=== PATIENT | male | born 1960 | race Caucasian/White ===

== ENCOUNTER 2017-05-29 22:54 | Inpatient (IN) | payer OTHER ==
[2017-05-29] MEDS ORDERED: Metoprolol Tartrate 50 MG TAB ONE (23:21)
[2017-05-29] MEDS ORDERED: Metoprolol Tartrate 5 MG/5 ML VIAL ONE (23:21)
[2017-05-29] MEDS ORDERED: Azithromycin 250 MG TAB ONE (23:26)
[2017-05-30 00:08] LABS: CKMB 2.6 ng/mL (0-6.6); Troponin I 0.019 ng/mL (< 0.028)
[2017-05-30] MEDS ORDERED: Albuterol Sulfate 2.5 mg/3 ml Neb NEB PRN (01:07)
[2017-05-30] MEDS ORDERED: Ondansetron HCl/PF 4 MG/2 ML Vial IVP PRN (01:08)
[2017-05-30] MEDS ORDERED: Ondansetron ODT 4 MG TAB SL PRN (01:08)
[2017-05-30] MEDS ORDERED: Acetaminophen 325 MG TAB PO PRN (01:08)
[2017-05-30 01:25] VITALS: BMI 32.5
[2017-05-30] MEDS: Guaifenesin DM 100-10/5 ML UDCUP PO PRN (01:59)
[2017-05-30 02:37] LABS: Troponin I 0.021 ng/mL (< 0.028)
--- NOTE | 2017-05-30 03:35 | HP ---
CHIEF COMPLAINT: Coughing. HISTORY OF PRESENT ILLNESS: The patient is a 57-year-old male who presents with shortness of breath and coughing. Patient was seen in [place] and tested positive for flu. He was also short of breath and transferred here for further inpatient workup. His chest x-ray did show also a possible concurr ent right lower lobe pneumonia. The patient states that he has been having fevers as well as his cou ghing. He does have a history of COPD, however, is not oxygen dependent. He still smokes about a pa ck a day. PAST MEDICAL HISTORY: The patient is significant for COPD and hypertension as well as atrial fibrill ation. PAST SURGICAL HISTORY: The patient had prior trach placement. ALLERGIES: No known drug allergies. REVIEW OF SYSTEMS: Please see HPI. Rest of 14-point review of systems is negative. FAMILY HISTORY: Reviewed and noncontributory. LABORATORY AND X-RAY DATA: Troponin 0.019. Patient's white count was 5.1, H and H 15 and 42 with a platelet of 105. Sodium is 136, potassium 4.3, chloride 103, bicarbonate 22, BUN 70 with a creatinin e of 0.8. Chest x-ray shows a right lower lobe infiltrate. PHYSICAL EXAMINATION: VITAL SIGNS: Blood pressure 109/71, pulse 100, respirations 20, T-max 98.4. The patient satting 94% on 2 liters. GENERAL: Patient is awake, alert, and oriented x3, in no acute distress. HEENT: Pupils round, reactive to light and accommodation. Extraocular muscles intact. TMs are sravanthi r. No thyromegaly. NECK: No JVD or lymphadenopathy. HEART: Regular rate and rhythm. LUNGS: With decreased breath sounds throughout. ABDOMEN: Positive bowel sounds, soft, nontender, nondistended. EXTREMITIES: No clubbing, cyanosis or edema. NEUROLOGIC: Cranial nerves II through XII are grossly intact. Muscle strength equal throughout. PSYCHIATRIC: The patient is cooperative and appropriate. ASSESSMENT AND PLAN: 1. Influenza B infection. Continue with Tamiflu. 2. Probable concurrent bacterial pneumonia. Continue on Levaquin. 3. Atrial fibrillation. Continue Eliquis and digoxin and rate control. 4. Hypertension. Continue lisinopril, metoprolol. 5. Code status: The patient is FULL CODE.
[2017-05-30 06:12] LABS: Troponin I 0.013 ng/mL (< 0.028)
[2017-05-30] MEDS: Oseltamivir 75 MG CAP PO SCH ×2 (08:18→21:38)
[2017-05-30] MEDS: Lisinopril 5 MG TAB PO SCH (08:18)
[2017-05-30] MEDS: Metoprolol Tartrate 50 MG TAB PO SCH ×2 (08:18→21:38)
[2017-05-30] MEDS: Digoxin 0.125 MG TAB PO SCH (08:19)
[2017-05-30] MEDS: Apixaban 5 MG TAB PO SCH ×2 (08:19→21:37)
[2017-05-30] MEDS ORDERED: FLU VACC QS2017-18 36 mo. & older 0.5 ML SYRINGE IM ONE (09:00)
[2017-05-30] MEDS ORDERED: Ondansetron ODT 4 MG TAB PO PRN (09:16)
[2017-05-30] MEDS ORDERED: Zolpidem Tartrate 5 MG TAB PO PRN (09:16)
[2017-05-30] MEDS ORDERED: hydrALAZINE 20 MG/ML VIAL SLOW IVP PRN (09:16)
--- NOTE | 2017-05-30 09:20 | PDOC.PN ---
- Subjective Encounter Start Date: 05/30/17 Encounter Start Time: 09:19 Subjective: less sob, coughing - Objective Resuscitation Status: Resuscitation Status FULL:Full Resuscitation MAR Reviewed: Yes Vital Signs & Weight: Vital Signs (12 hours) Temp Pulse Resp BP BP Pulse Ox 05/30/17 08:19 98 05/30/17 08:18 98 130/90 05/30/17 08:00 96.7 F L 103 H 18 130/90 91 L 05/30/17 04:00 97.5 F L 94 19 108/58 L 94 L 05/30/17 00:50 97.5 F L 94 19 112/65 95 Weight Weight 240 lb 4.862 oz I&O: 05/29/17 05/30/17 05/31/17 06:59 06:59 06:59 Intake Total 400 Balance 400 Phys Exam - Physical Examination Constitutional: NAD Neck: no JVD distant BS with rhonchi Cardiovascular: RRR, no significant murmur Gastrointestinal: soft, positive bowel sounds Musculoskeletal: no edema Dx/Plan (1) COPD exacerbation Code(s): J44.1 - CHRONIC OBSTRUCTIVE PULMONARY DISEASE W (ACUTE) EXACERBATION Status: Acute (2) Atrial fibrillation with controlled ventricular rate Code(s): I48.91 - UNSPECIFIED ATRIAL FIBRILLATION Status: Chronic (3) Anticoagulant long-term use Code(s): Z79.01 - COGNOS LEAD (CURRENT) USE OF ANTICOAGULANTS Status: Chronic (4) HTN (hypertension) Code(s): I10 - ESSENTIAL (PRIMARY) HYPERTENSION Status: Chronic (5) Tobacco abuse Code(s): Z72.0 - TOBACCO USE Status: Chronic (6) PNA (pneumonia) Code(s): J18.9 - PNEUMONIA, UNSPECIFIED ORGANISM Status: Acute Qualifiers: Pneumonia type: due to unspecified organism Laterality: unspecified laterality Lung location: unspecified part of lung Qualified Code(s): J18.9 - Pneumonia, unspecified organism - Plan start douneb q 6h, cont antibx -: cont dig, eliquis, lisinopril, metoprolol * .
[2017-05-30] MEDS: Benzonatate 100 MG CAP PO PRN (21:43)
[2017-05-30 22:55] LABS: Hemoglobin 15.3 g/dL (14.0-18.0); Platelet Count 141 thou/uL (130-400)
[2017-05-30 23:14] LABS: Calc. Creatinine Clearance 148 mL/min (70-130); Estimated GFR-MDRD Greater than 90
[2017-05-31 05:21] LABS: #Lymphocytes 0.8 thou/uL (1.20-3.40); #Monocytes 0.5 thou/uL (0.11-0.59); #Neutrophils 5.8 thou/uL (1.40-6.50); %Basophils 0.1 % (0.0-1.0); %Eosinophils 0.3 % (0.0-10.0); %Lymphocytes 10.7 % (21.0-51.0); %Monocytes 6.6 % (0.0-10.0); %Neutrophils 82.4 % (42.0-75.0); Hemoglobin 14.7 g/dL (14.0-18.0); Mean Corpuscular HGB CONC 33.4 g/dL (32.0-36.0); Mean Corpuscular Hemoglobin 31.5 pg (27.0-31.0); Mean Corpuscular Volume 94.3 fl (80.0-94.0); Mean Platelet Volume 9.2 fL (7.4-10.4); Platelet Count 134 thou/uL (130-400); RBC Distribution Width 12.2 % (11.5-14.5); Red Blood Cell (RBC) Count 4.66 mill/uL (4.70-6.10)
[2017-05-31] MEDS ORDERED: Sodium Chloride 0.9% 10 ML ONE ×2 (05:38→20:38)
[2017-05-31 05:50] LABS: Anion Gap 10 mmol/L (10-20); BUN (Urea Nitrogen) 17 mg/dL (8.4-25.7); Calc. Creatinine Clearance 159 mL/min (70-130); Calcium 8.5 mg/dL (7.8-10.44); Carbon Dioxide 25 mmol/L (22-29); Chloride 104 mmol/L (98-107); Estimated GFR-MDRD Greater than 90; Glucose 128 mg/dL (70-105); Potassium 3.9 mmol/L (3.5-5.1); Sodium 135 mmol/L (136-145)
[2017-05-31] MEDS: Lisinopril 5 MG TAB PO SCH (09:04)
[2017-05-31] MEDS: Apixaban 5 MG TAB PO SCH ×2 (09:04→20:49)
[2017-05-31] MEDS: Digoxin 0.125 MG TAB PO SCH (09:05)
[2017-05-31] MEDS: Metoprolol Tartrate 50 MG TAB PO SCH ×2 (09:05→20:50)
[2017-05-31] MEDS: Oseltamivir 75 MG CAP PO SCH ×2 (09:05→20:49)
--- NOTE | 2017-05-31 09:58 | PDOC.PN ---
- Subjective Encounter Start Date: 05/31/17 Encounter Start Time: 09:56 Subjective: less sob, still coughing - Objective Resuscitation Status: Resuscitation Status FULL:Full Resuscitation MAR Reviewed: Yes Vital Signs & Weight: Vital Signs (12 hours) Temp Pulse Resp BP BP Pulse Ox 05/31/17 09:05 118 H 05/31/17 09:04 118 H 120/82 05/31/17 07:41 97.2 F L 118 H 19 92 L 05/31/17 07:39 97.2 F L 118 H 19 120/82 92 L 05/31/17 05:19 105 H 20 96 05/31/17 04:00 97.8 F 81 20 127/73 94 L 05/30/17 23:00 112 H 20 116/71 93 L Weight Weight 242 lb 3.2 oz I&O: 05/30/17 05/31/17 06/01/17 06:59 06:59 06:59 Intake Total 400 480 Balance 400 480 Result Diagrams: 05/31/17 04:29 05/31/17 04:29 Phys Exam - Physical Examination Neck: no JVD distant BS, no wheezes Cardiovascular: RRR, no significant murmur Gastrointestinal: soft, non-tender, positive bowel sounds Musculoskeletal: no edema Dx/Plan (1) COPD exacerbation Code(s): J44.1 - CHRONIC OBSTRUCTIVE PULMONARY DISEASE W (ACUTE) EXACERBATION Status: Acute (2) Atrial fibrillation with controlled ventricular rate Code(s): I48.91 - UNSPECIFIED ATRIAL FIBRILLATION Status: Chronic (3) Anticoagulant long-term use Code(s): Z79.01 - DETENTION (CURRENT) USE OF ANTICOAGULANTS Status: Chronic (4) HTN (hypertension) Code(s): I10 - ESSENTIAL (PRIMARY) HYPERTENSION Status: Chronic (5) Tobacco abuse Code(s): Z72.0 - TOBACCO USE Status: Chronic (6) PNA (pneumonia) Code(s): J18.9 - PNEUMONIA, UNSPECIFIED ORGANISM Status: Acute Qualifiers: Pneumonia type: due to unspecified organism Laterality: unspecified laterality Lung location: unspecified part of lung Qualified Code(s): J18.9 - Pneumonia, unspecified organism - Plan cont antibx, nebs, tamiflu -: cont home meds * .
[2017-05-31] MEDS: Benzonatate 100 MG CAP PO PRN ×2 (12:28→20:49)
[2017-05-31] MEDS: Guaifenesin DM 100-10/5 ML UDCUP PO PRN (17:18)
[2017-05-31] MEDS: Acetaminophen 325 MG TAB PO PRN (19:09)
[2017-06-01] MEDS ORDERED: Sodium Chloride 0.9% 10 ML ONE ×2 (05:52→20:06)
[2017-06-01] MEDS: Guaifenesin DM 100-10/5 ML UDCUP PO PRN (05:58)
[2017-06-01] MEDS: Benzonatate 100 MG CAP PO PRN (05:59)
[2017-06-01] MEDS: Acetaminophen 325 MG TAB PO PRN (06:10)
[2017-06-01] MEDS: Digoxin 0.125 MG TAB PO SCH (09:11)
[2017-06-01] MEDS: Lisinopril 5 MG TAB PO SCH (09:11)
[2017-06-01] MEDS: Apixaban 5 MG TAB PO SCH ×2 (09:11→21:16)
[2017-06-01] MEDS: Oseltamivir 75 MG CAP PO SCH ×2 (09:12→21:17)
[2017-06-01] MEDS: Metoprolol Tartrate 50 MG TAB PO SCH ×2 (09:12→21:16)
--- NOTE | 2017-06-01 10:58 | PDOC.PN ---
- Subjective Encounter Start Date: 06/01/17 Encounter Start Time: 10:56 Subjective: cough, some sob - Objective Resuscitation Status: Resuscitation Status FULL:Full Resuscitation MAR Reviewed: Yes Vital Signs & Weight: Vital Signs (12 hours) Temp Pulse Resp BP BP Pulse Ox 06/01/17 09:11 104 H 106/60 06/01/17 08:00 96.9 F L 104 H 20 106/60 90 L 06/01/17 06:02 28 H 94 L 06/01/17 05:37 97.1 F L 113 H 28 H 111/69 94 L 05/31/17 23:57 96 24 H 92 L 05/31/17 23:56 98.2 F 96 24 H 105/75 94 L Weight Weight 241 lb 4.8 oz I&O: 05/31/17 06/01/17 06/02/17 06:59 06:59 06:59 Intake Total 480 1730 Balance 480 1730 Result Diagrams: 05/31/17 04:29 05/31/17 04:29 Phys Exam - Physical Examination Neck: no JVD Respiratory: clear to auscultation bilateral with decreased BS Cardiovascular: irregular Gastrointestinal: soft, positive bowel sounds Musculoskeletal: no edema Dx/Plan (1) COPD exacerbation Code(s): J44.1 - CHRONIC OBSTRUCTIVE PULMONARY DISEASE W (ACUTE) EXACERBATION Status: Acute (2) Atrial fibrillation with controlled ventricular rate Code(s): I48.91 - UNSPECIFIED ATRIAL FIBRILLATION Status: Chronic (3) Anticoagulant long-term use Code(s): Z79.01 - PRISON (CURRENT) USE OF ANTICOAGULANTS Status: Chronic (4) HTN (hypertension) Code(s): I10 - ESSENTIAL (PRIMARY) HYPERTENSION Status: Chronic (5) Tobacco abuse Code(s): Z72.0 - TOBACCO USE Status: Chronic (6) PNA (pneumonia) Code(s): J18.9 - PNEUMONIA, UNSPECIFIED ORGANISM Status: Acute Qualifiers: Pneumonia type: due to unspecified organism Laterality: unspecified laterality Lung location: unspecified part of lung Qualified Code(s): J18.9 - Pneumonia, unspecified organism - Plan cont to improve, will cont nebs, antibx, tamiflu, anticipate DC 1-2 days * .
[2017-06-01 22:41] LABS: Hemoglobin 15.1 g/dL (14.0-18.0); Platelet Count 128 thou/uL (130-400)
[2017-06-01 23:03] LABS: Calc. Creatinine Clearance 166 mL/min (70-130); Estimated GFR-MDRD Greater than 90
[2017-06-02] MEDS ORDERED: Sodium Chloride 0.9% 10 ML ONE (05:28)
[2017-06-02] MEDS: Digoxin 0.125 MG TAB PO SCH (09:08)
[2017-06-02] MEDS: Lisinopril 5 MG TAB PO SCH (09:08)
[2017-06-02] MEDS: Metoprolol Tartrate 50 MG TAB PO SCH (09:08)
[2017-06-02] MEDS: Oseltamivir 75 MG CAP PO SCH (09:08)
[2017-06-02 09:09] VITALS: BP 125/81
[2017-06-02] MEDS: Apixaban 5 MG TAB PO SCH (09:09)
--- NOTE | 2017-06-02 09:54 | DIS ---
DATE OF ADMISSION: 05/29/2017 DATE OF DISCHARGE: 06/02/2017 PRIMARY CARE PROVIDER: Dr. Clementine Lee. DISPOSITION: Discharged home. FINAL DIAGNOSES: Chronic obstructive pulmonary disease exacerbation, influenza A, atrial fibrillatio n controlled, essential hypertension, anticoagulation, hypertension, tobacco abuse. DISCHARGE MEDICATIONS: As home medicines. Digoxin 0.125 mg a day, Eliquis 5 mg twice a day, Klor-Co n 10 mEq b.i.d., metoprolol 50 mg b.i.d., lisinopril 5 mg a day plus DuoNeb 3 mL q.6 hours p.r.n., Om nicef 600 mg a day for 7 more days, Tessalon Perles 100 mg p.o. t.i.d. p.r.n. cough and Tamiflu 75 mg twice a day. ALLERGIES: No known allergies. PENDING AT THE TIME OF DISCHARGE: Nothing. CODE STATUS: FULL. HOSPITAL COURSE: The patient admitted to [facility] through the Emergency Department to the [facility] with shortness of breath, cough. His chest x-ray was read as possible pne umonia. There was some possible increase in right basilar markings per radiology when I reviewed the films and did not see any distinct pneumonia. His chest exam revealed only distant breath sounds wi th some scattered rhonchi, no focal findings. His white count was normal throughout his hospital sta y at 5.1 and 7.0, hemoglobin stable at 15 plus or minus. His liver function tests were mildly elevat ed at 109 and 127, otherwise comprehensive metabolic profile was normal. Digoxin level was 0.1. The patient was mildly hypoxemic, which is resolved during his hospital stay. Currently, his chest stil l has somewhat distant breath sounds, but clear. Heart has a regular rate and rhythm. Vital signs a re stable. CONSULTATIONS: None. PROCEDURES: None. DISCHARGE INSTRUCTIONS: He has been discharged with follow up by Dr. Lee in 7 days. Prescriptio ns have been written. I have also written a prescription for nebulizer for him to use as needed. In his follow up, he probably should have a repeat chest x-ray.
[2017-06-02 11:48] VITALS: TEMP 97
--- NOTE | 2017-06-04 17:05 | EKG ---
Test Reason : TACHYCARDIA Blood Pressure : / mmHG Vent. Rate : 130 BPM Atrial Rate : 159 BPM P-R Int : 000 ms QRS Dur : 092 ms QT Int : 284 ms P-R-T Axes : 000 111 -80 degrees QTc Int : 417 ms Atrial fibrillation with rapid ventricular response Low voltage QRS Left posterior fascicular block Nonspecific ST and T wave abnormality Abnormal ECG Confirmed by BASSEM MURGUIA D.O. ([id number]), senior technical editor MELINA MURPHY ([id number] on 06/04/2017 5:04:30 PM Referred By: Confirmed By:BASSEM MURGUIA D.O.
== END 2017-06-02 11:19 | disposition home or self-care (01) | DRG 190 ==
LOC: ERS 22:54 → 2NO 23:30
PROVIDERS: ADMIT Hospitalist; ATTEND Hospitalist
DX: J44.1 Chronic obstructive pulmonary disease with (acute) exacerbation (principal); J10.00 Influenza due to other identified influenza virus with unspecified type of pneumonia; J15.9 Unspecified bacterial pneumonia; I48.2 Chronic atrial fibrillation; J44.0 Chronic obstructive pulmonary disease with (acute) lower respiratory infection; F17.210 Nicotine dependence, cigarettes, uncomplicated; I10 Essential (primary) hypertension; Z79.01 Long term (current) use of anticoagulants
CPT/HCPCS: 36415; 80048; 82565; 84484; 85014; 85018; 85025; 85049; 93005; 94640; 94760; 96374; A4216; J1956; J7620

== ENCOUNTER 2018-06-29 07:55 | Outpatient (CLI) | payer OTHER ==
--- NOTE | 2018-06-29 09:29 | ULT ---
HEPATIC ULTRASOUND AND DOPPLER: TECHNIQUE: Garza-scale images of the liver obtained. Doppler studies of the hepatic vessels was performed with c olor Doppler and spectral analysis. FINDINGS: The liver shows mild increased echogenicity, suggesting fatty infiltration. No focal liver mass iden tified. The visualized hepatic vessels are interrogated with color Doppler and spectral analysis. A ll vessels show normal blood flow and direction, including hepatic arteries, hepatic veins, portable veins and splenic artery and vein. The gallbladder is limited in evaluation due to body habitus, and the gallbladder appears mildly cont racted. On the limited images of the gallbladder presented, there is no evidence of gallstones. The common duct is unable to be identified on this study. There is no evidence of biliary duct dilatati on. The pancreas is obscured and not evaluated. The right kidney is imaged. There is no evidence of hyd ronephrosis; however, there is evidence of a small calculus in the upper pole, right kidney, seen on one or two of the images. The spleen is unremarkable. IMPRESSION: 1. The liver shows mild increased echogenicity, suggesting fatty infiltration. 2. All hepatic vessels show normal blood flow direction. 3. The gallbladder is suboptimally evaluated; however, no definite gallstone identified. POS: [facility]
== END 2018-06-29 07:56 | disposition home or self-care (01) ==
LOC: BICULT 07:55
PROVIDERS: ATTEND Physician Assistant Medical
DX: B18.2 Chronic viral hepatitis C (principal); R93.2 Abnormal findings on diagnostic imaging of liver and biliary tract
CPT/HCPCS: 76705

== ENCOUNTER 2022-04-26 18:34 | Emergency (ER) | payer OTHER ==
[2022-04-26] MEDS ORDERED: Ipratropium/Albuterol 3 ML NEB ONE (19:09)
[2022-04-26 19:13] LABS: #Eosinphils 0.3 thou/uL (0.0-0.7); #Lymphocytes 1.6 thou/uL (1.20-3.40); #Monocytes 0.8 thou/uL (0.11-0.59); #Neutrophils 6.1 thou/uL (1.40-6.50); %Basophils 0.3 % (0.0-1.0); %Eosinophils 3.6 % (0.0-10.0); %Monocytes 8.6 % (0.0-10.0); %Neutrophils 69.4 % (42.0-75.0); Hemoglobin 14.9 g/dL (14.0-18.0); Mean Corpuscular HGB CONC 32.8 g/dL (32.0-36.0); Mean Corpuscular Hemoglobin 29.7 pg (27.0-31.0); Mean Corpuscular Volume 90.7 fl (78.0-98.0); Platelet Count 186 10x3/uL (130-400); RBC Distribution Width 13.7 % (11.5-14.5); Red Blood Cell (RBC) Count 5.01 mill/uL (4.70-6.10); White Blood Cell (WBC) Count 8.8 10x3/uL (4.8-10.8)
[2022-04-26 19:37] LABS: ALT (SGPT) 21 U/L (8-55); AST (SGOT) 17 U/L (5-34); Albumin 4.4 g/dL (3.4-4.8); Alkaline Phosphatase 72 U/L (40-110); Anion Gap 15 mmol/L (10-20); BUN (Urea Nitrogen) 13 mg/dL (8.4-25.7); Bilirubin, Total 0.8 mg/dL (0.2-1.2); Calc. Creatinine Clearance 0 mL/min (70-130); Calcium 9.4 mg/dL (7.8-10.44); Carbon Dioxide 26 mmol/L (23-31); Chloride 107 mmol/L (98-107); Estimated GFR 88; Glucose 127 mg/dL (80-115); Potassium 4.6 mmol/L (3.5-5.1); Protein, Total 7.4 g/dL (5.8-8.1); Sodium 143 mmol/L (136-145)
[2022-04-26] MEDS ORDERED: Dexamethasone 4 mg/ml Vial ONE (20:36)
[2022-04-26] MEDS ORDERED: Gabapentin 100 MG CAP PO SCH (20:45)
== END 2022-04-26 20:50 | disposition home or self-care (01) ==
LOC: ERS 18:34
DX: J44.1 Chronic obstructive pulmonary disease with (acute) exacerbation (principal); G62.9 Polyneuropathy, unspecified; I11.0 Hypertensive heart disease with heart failure; I50.9 Heart failure, unspecified; J44.9 Chronic obstructive pulmonary disease, unspecified; F17.210 Nicotine dependence, cigarettes, uncomplicated
CPT/HCPCS: 36415; 71045; 80053; 83880; 84484; 85025; 93005; 94640; 94760; J1100; J7620

== ENCOUNTER 2022-05-22 16:17 | Inpatient (IN) | payer OTHER ==
[2022-05-22 16:53] LABS: #Eosinphils 0.3 thou/uL (0.0-0.7); #Lymphocytes 1.1 thou/uL (1.20-3.40); #Monocytes 0.8 thou/uL (0.11-0.59); %Basophils 0.3 % (0.0-1.0); %Eosinophils 3.6 % (0.0-10.0); %Lymphocytes 13.7 % (21.0-51.0); %Monocytes 10.1 % (0.0-10.0); %Neutrophils 72.4 % (42.0-75.0); Hemoglobin 13.7 g/dL (14.0-18.0); Mean Corpuscular HGB CONC 33.4 g/dL (32.0-36.0); Mean Corpuscular Hemoglobin 30.5 pg (27.0-31.0); Mean Corpuscular Volume 91.1 fl (78.0-98.0); Mean Platelet Volume 7.8 fL (7.4-10.4); Platelet Count 243 10x3/uL (130-400); Red Blood Cell (RBC) Count 4.51 mill/uL (4.70-6.10); White Blood Cell (WBC) Count 8.3 10x3/uL (4.8-10.8)
[2022-05-22 17:12] LABS: ALT (SGPT) 19 U/L (8-55); AST (SGOT) 14 U/L (5-34); Albumin 3.9 g/dL (3.4-4.8); Alkaline Phosphatase 77 U/L (40-110); Anion Gap 13 mmol/L (10-20); BUN (Urea Nitrogen) 19 mg/dL (8.4-25.7); Bilirubin, Total 0.4 mg/dL (0.2-1.2); Calc. Creatinine Clearance 0 mL/min (70-130); Calcium 9.4 mg/dL (7.8-10.44); Carbon Dioxide 28 mmol/L (23-31); Chloride 100 mmol/L (98-107); Estimated GFR 94; Globulin 2.6 g/dL (2.4-3.5); Glucose 153 mg/dL (80-115); Potassium 4.9 mmol/L (3.5-5.1); Protein, Total 6.5 g/dL (5.8-8.1); Sodium 136 mmol/L (136-145)
[2022-05-22] MEDS ORDERED: Furosemide 40 MG/4 ML VIAL ONE (17:30)
[2022-05-22] MEDS ORDERED: Aspirin Chewable 81 MG TAB ONE (17:30)
[2022-05-22] MEDS ORDERED: Acetaminophen 325 MG TAB PO PRN (18:07)
[2022-05-22] MEDS ORDERED: Bisacodyl 5 MG TAB PO PRN (18:07)
[2022-05-22] MEDS ORDERED: Ondansetron PF 4 MG/2 ML Vial IVP PRN (18:07)
[2022-05-22] MEDS ORDERED: Bisacodyl 10 MG SUPP PR PRN (18:07)
[2022-05-22] MEDS ORDERED: Senokot S 8.6-50 MG TAB PO PRN (18:07)
[2022-05-22] MEDS ORDERED: Aspirin Chewable 81 MG TAB PO SCH (19:45)
[2022-05-22] MEDS ORDERED: methylPREDNISolone Sod Succ/PF 125 MG/2 ML VIAL IVP SCH (20:00)
[2022-05-22 20:37] VITALS: BMI 34.4
[2022-05-22 20:53] LABS: SARS-CoV-2 NAA Rapid Test Not Detected (NotDetected)
[2022-05-22] MEDS: Ipratropium/Albuterol 3 ML NEB NEB PRN (22:12)
[2022-05-22] MEDS: HYDROcodone/Acetaminophen 5/325 mg Tablet PO PRN (22:27)
[2022-05-22] MEDS ORDERED: Tamsulosin HCl 0.4 MG CAP PO SCH (22:30)
[2022-05-22] MEDS ORDERED: Apixaban 5 MG TAB PO SCH (23:30)
[2022-05-22] MEDS ORDERED: Metoprolol Tartrate 50 MG TAB PO SCH (23:30)
[2022-05-22] MEDS ORDERED: Gabapentin 300 MG CAP PO SCH (23:30)
[2022-05-23] MEDS: Nicotine 21 MG PATCH TD PRN (00:04)
[2022-05-23 00:09] LABS: Legionella Urinary Ag Negative (Negative); Strep pneumo Urine Ag NEGATIVE (NEGATIVE)
[2022-05-23] MEDS: Ipratropium/Albuterol 3 ML NEB NEB SCH ×5 (00:25→23:37)
[2022-05-23 02:01] LABS: #Lymphocytes 0.5 thou/uL (1.20-3.40); #Monocytes 0.2 thou/uL (0.11-0.59); #Neutrophils 10.2 thou/uL (1.40-6.50); %Eosinophils 0.4 % (0.0-10.0); %Lymphocytes 4.6 % (21.0-51.0); %Monocytes 1.5 % (0.0-10.0); %Neutrophils 93.5 % (42.0-75.0); Hemoglobin 14.7 g/dL (14.0-18.0); Mean Corpuscular HGB CONC 34.3 g/dL (32.0-36.0); Mean Corpuscular Hemoglobin 30.8 pg (27.0-31.0); Mean Corpuscular Volume 89.9 fl (78.0-98.0); Platelet Count 246 10x3/uL (130-400); RBC Distribution Width 13.1 % (11.5-14.5); Red Blood Cell (RBC) Count 4.75 mill/uL (4.70-6.10); White Blood Cell (WBC) Count 10.9 10x3/uL (4.8-10.8)
[2022-05-23 02:32] LABS: ALT (SGPT) 20 U/L (8-55); AST (SGOT) 17 U/L (5-34); Alkaline Phosphatase 88 U/L (40-110); Anion Gap 16 mmol/L (10-20); BUN (Urea Nitrogen) 24 mg/dL (8.4-25.7); Bilirubin, Direct 0.2 mg/dL (0.1-0.3); Bilirubin, Total 0.4 mg/dL (0.2-1.2); Calc. Creatinine Clearance 97 mL/min (70-130); Calcium 9.2 mg/dL (7.8-10.44); Carbon Dioxide 24 mmol/L (23-31); Chloride 100 mmol/L (98-107); Estimated GFR 64; Glucose 307 mg/dL (80-115); Magnesium 1.9 mg/dL (1.6-2.6); Potassium 4.9 mmol/L (3.5-5.1); Protein, Total 7.1 g/dL (5.8-8.1); Sodium 135 mmol/L (136-145)
[2022-05-23 02:33] LABS: Digoxin 1.14 ng/mL (0.8-2.0)
[2022-05-23] MEDS: HYDROcodone/Acetaminophen 5/325 mg Tablet PO PRN ×4 (02:53→21:11)
[2022-05-23 04:04] LABS: Troponin I Less than 0.010 ng/mL (< 0.028)
[2022-05-23] MEDS ORDERED: Dextrose 5% in Water 1,000 ML IV PRN (04:35)
[2022-05-23] MEDS ORDERED: Dextrose 50% Abboject 50 ML SYRINGE SLOW IVP PRN (04:35)
[2022-05-23] MEDS: HumaLOG 300 UNITS/3 ML VIAL SC PRN ×4 (05:32→21:14)
[2022-05-23] MEDS: Furosemide 20 MG/2 ML VIAL SLOW IVP SCH ×2 (05:33→13:57)
[2022-05-23] MEDS: Mometasone/Formoterol 200/5 60 PUFF INH SCH ×2 (07:16→18:58)
[2022-05-23] MEDS: Benzonatate 100 MG CAP PO PRN ×2 (09:31→21:10)
[2022-05-23] MEDS: predniSONE 20 MG TAB PO SCH (09:32)
[2022-05-23] MEDS: Apixaban 5 MG TAB PO SCH ×2 (09:33→21:11)
[2022-05-23] MEDS: Gabapentin 300 MG CAP PO SCH ×2 (09:34→21:11)
[2022-05-23] MEDS: Digoxin 0.25 MG TAB PO SCH (09:34)
[2022-05-23] MEDS: Aspirin Chewable 81 MG TAB PO SCH (09:34)
[2022-05-23] MEDS: Lisinopril 2.5 MG TAB PO SCH (09:37)
[2022-05-23] MEDS: Metoprolol Tartrate 50 MG TAB PO SCH ×2 (09:38→21:11)
[2022-05-23] MEDS: guaiFENesin ER 600 MG TAB PO SCH (21:10)
[2022-05-23] MEDS: Tamsulosin HCl 0.4 MG CAP PO SCH (21:11)
[2022-05-24 04:27] LABS: #Lymphocytes 0.7 thou/uL (1.20-3.40); #Monocytes 1.3 thou/uL (0.11-0.59); %Basophils 0.1 % (0.0-1.0); %Eosinophils 0.1 % (0.0-10.0); %Monocytes 7.1 % (0.0-10.0); %Neutrophils 88.7 % (42.0-75.0); Hemoglobin 12.8 g/dL (14.0-18.0); Mean Corpuscular HGB CONC 32.7 g/dL (32.0-36.0); Mean Corpuscular Hemoglobin 29.4 pg (27.0-31.0); Mean Corpuscular Volume 89.9 fl (78.0-98.0); Mean Platelet Volume 8.3 fL (7.4-10.4); Platelet Count 250 10x3/uL (130-400); RBC Distribution Width 13.1 % (11.5-14.5); Red Blood Cell (RBC) Count 4.34 mill/uL (4.70-6.10)
[2022-05-24 05:01] LABS: Anion Gap 16 mmol/L (10-20); BUN (Urea Nitrogen) 31 mg/dL (8.4-25.7); Calc. Creatinine Clearance 138 mL/min (70-130); Calcium 9.5 mg/dL (7.8-10.44); Carbon Dioxide 25 mmol/L (23-31); Chloride 99 mmol/L (98-107); Cholesterol 121 mg/dl (< 200 Desired); Estimated GFR 96; Glucose 252 mg/dL (80-115); HDL Cholesterol 41 mg/dL (>60 Neg Risk); LDL Cholesterol, Calculated 69 mg/dL; Potassium 4.5 mmol/L (3.5-5.1); Sodium 135 mmol/L (136-145); Triglycerides 57 mg/dL (Less than 150)
[2022-05-24] MEDS: Mometasone/Formoterol 200/5 60 PUFF INH SCH ×2 (07:18→19:18)
[2022-05-24] MEDS: Ipratropium/Albuterol 3 ML NEB NEB SCH ×3 (07:18→19:13)
[2022-05-24] MEDS ORDERED: Regadenoson 0.4 MG/5 ML SYRINGE ONE (08:23)
[2022-05-24] MEDS: Furosemide 40 MG TAB PO SCH ×2 (09:00→15:02)
[2022-05-24] MEDS: Apixaban 5 MG TAB PO SCH (09:00)
[2022-05-24] MEDS: Metoprolol Tartrate 50 MG TAB PO SCH ×2 (09:00→21:12)
[2022-05-24] MEDS: Gabapentin 300 MG CAP PO SCH ×2 (09:00→21:12)
[2022-05-24] MEDS ORDERED: Insulin Glargine 30 UNITS/0.3 ML VIAL SC SCH (10:00)
[2022-05-24] MEDS: predniSONE 20 MG TAB PO SCH (14:56)
[2022-05-24] MEDS: Lisinopril 2.5 MG TAB PO SCH (14:57)
[2022-05-24] MEDS: guaiFENesin ER 600 MG TAB PO SCH ×2 (14:57→21:15)
[2022-05-24] MEDS: Digoxin 0.25 MG TAB PO SCH (14:57)
[2022-05-24] MEDS: Aspirin Chewable 81 MG TAB PO SCH (14:57)
[2022-05-24] MEDS: HYDROcodone/Acetaminophen 5/325 mg Tablet PO PRN ×2 (15:01→19:54)
[2022-05-24] MEDS ORDERED: Communication Order-Pharmacy FS SCH (15:30)
[2022-05-24] MEDS: Atorvastatin Calcium 40 MG TAB PO SCH (21:13)
[2022-05-24] MEDS: Tamsulosin HCl 0.4 MG CAP PO SCH (21:15)
[2022-05-24] MEDS: Insulin Glargine 30 UNITS/0.3 ML VIAL SC SCH (21:16)
[2022-05-24] MEDS: HumaLOG 300 UNITS/3 ML VIAL SC PRN (21:17)
[2022-05-24] MEDS: Nicotine 21 MG PATCH TD PRN (22:58)
[2022-05-25] MEDS: Ipratropium/Albuterol 3 ML NEB NEB SCH ×5 (01:38→23:00)
[2022-05-25] MEDS: Ipratropium/Albuterol 3 ML NEB NEB PRN (04:57)
[2022-05-25] MEDS: HYDROcodone/Acetaminophen 5/325 mg Tablet PO PRN ×3 (05:44→20:28)
[2022-05-25] MEDS: HumaLOG 300 UNITS/3 ML VIAL SC PRN ×3 (05:46→20:34)
[2022-05-25] MEDS: Mometasone/Formoterol 200/5 60 PUFF INH SCH ×2 (06:35→18:41)
[2022-05-25] MEDS: predniSONE 20 MG TAB PO SCH (09:24)
[2022-05-25] MEDS: guaiFENesin ER 600 MG TAB PO SCH ×2 (09:24→20:28)
[2022-05-25] MEDS: Digoxin 0.25 MG TAB PO SCH (09:24)
[2022-05-25] MEDS: Furosemide 40 MG TAB PO SCH ×2 (09:24→15:33)
[2022-05-25] MEDS: Gabapentin 300 MG CAP PO SCH ×2 (09:24→20:28)
[2022-05-25] MEDS: Aspirin Chewable 81 MG TAB PO SCH (09:24)
[2022-05-25] MEDS: Metoprolol Tartrate 50 MG TAB PO SCH ×2 (09:25→20:28)
[2022-05-25] MEDS: Insulin Glargine 30 UNITS/0.3 ML VIAL SC SCH ×2 (09:25→20:29)
[2022-05-25] MEDS: Lisinopril 2.5 MG TAB PO SCH (09:25)
[2022-05-25] MEDS: Tamsulosin HCl 0.4 MG CAP PO SCH (20:28)
[2022-05-25] MEDS: Atorvastatin Calcium 40 MG TAB PO SCH (20:28)
[2022-05-26] MEDS: Furosemide 40 MG TAB PO SCH ×2 (04:01→16:42)
[2022-05-26] MEDS: Nicotine 21 MG PATCH TD PRN (05:51)
[2022-05-26] MEDS: Lisinopril 2.5 MG TAB PO SCH (05:51)
[2022-05-26] MEDS: Gabapentin 300 MG CAP PO SCH (05:51)
[2022-05-26] MEDS: Metoprolol Tartrate 50 MG TAB PO SCH (05:51)
[2022-05-26] MEDS: Aspirin Chewable 81 MG TAB PO SCH (05:51)
[2022-05-26] MEDS: guaiFENesin ER 600 MG TAB PO SCH (05:52)
[2022-05-26] MEDS: Digoxin 0.25 MG TAB PO SCH (05:52)
[2022-05-26] MEDS: predniSONE 20 MG TAB PO SCH (05:52)
[2022-05-26] MEDS: HYDROcodone/Acetaminophen 5/325 mg Tablet PO PRN ×2 (05:59→11:05)
[2022-05-26] MEDS ORDERED: Sodium Chloride 0.9% 1,000 ML IV SCH ×2 (06:00→07:41)
[2022-05-26] MEDS ORDERED: Heparin 10,000 UNITS/ 10 ML VIAL ONE (06:18)
[2022-05-26] MEDS ORDERED: Lidocaine 1% (PF) 30 ML VIAL ONE (06:19)
[2022-05-26 06:30] LABS: #Eosinphils 0.1 thou/uL (0.0-0.7); #Lymphocytes 1.3 thou/uL (1.20-3.40); #Monocytes 1.4 thou/uL (0.11-0.59); #Neutrophils 11.9 thou/uL (1.40-6.50); %Basophils 0.1 % (0.0-1.0); %Eosinophils 0.6 % (0.0-10.0); %Lymphocytes 9.1 % (21.0-51.0); %Monocytes 9.2 % (0.0-10.0); %Neutrophils 81.1 % (42.0-75.0); Hemoglobin 13.8 g/dL (14.0-18.0); Mean Corpuscular HGB CONC 33.1 g/dL (32.0-36.0); Mean Corpuscular Hemoglobin 29.8 pg (27.0-31.0); Mean Corpuscular Volume 90.2 fl (78.0-98.0); Mean Platelet Volume 8.4 fL (7.4-10.4); Platelet Count 259 10x3/uL (130-400); RBC Distribution Width 13.1 % (11.5-14.5); Red Blood Cell (RBC) Count 4.63 mill/uL (4.70-6.10); White Blood Cell (WBC) Count 14.7 10x3/uL (4.8-10.8)
[2022-05-26] MEDS ORDERED: Midazolam HCl 2 mg/2 ml Vial ONE (06:53)
[2022-05-26 06:54] LABS: Anion Gap 13 mmol/L (10-20); BUN (Urea Nitrogen) 26 mg/dL (8.4-25.7); Calc. Creatinine Clearance 119 mL/min (70-130); Calcium 9.1 mg/dL (7.8-10.44); Carbon Dioxide 29 mmol/L (23-31); Chloride 101 mmol/L (98-107); Estimated GFR 81; Glucose 201 mg/dL (80-115); Magnesium 2.1 mg/dL (1.6-2.6); Potassium 3.8 mmol/L (3.5-5.1); Sodium 139 mmol/L (136-145)
[2022-05-26] MEDS ORDERED: FENTANYL 50 MCG/ML 1 ML VIAL ONE (06:54)
[2022-05-26] MEDS: Ipratropium/Albuterol 3 ML NEB NEB SCH ×2 (07:07→13:34)
[2022-05-26] MEDS: Mometasone/Formoterol 200/5 60 PUFF INH SCH (07:08)
[2022-05-26] MEDS ORDERED: Protamine Sulfate 50 MG/5 ML VIAL ONE (07:22)
[2022-05-26] MEDS ORDERED: Acetaminophen/Codeine 30-300mg Tablet PO PRN ×2 (07:40)
[2022-05-26] MEDS ORDERED: Sodium Chloride 0.9% 200 ML IV PRN (07:40)
[2022-05-26] MEDS ORDERED: Nitroglycerin 0.4 MG TAB (25 Tab Bottle) SL PRN (07:40)
[2022-05-26] MEDS ORDERED: Lorazepam 2 MG/ML VIAL SLOW IVP SCH (12:00)
[2022-05-26] MEDS ORDERED: HumaLOG 300 UNITS/3 ML VIAL SC PRN (12:40)
[2022-05-26 16:45] VITALS: BP 113/76; TEMP 98.5
[2022-05-28] MEDS ORDERED: Apixaban 5 MG TAB PO SCH (09:00)
== END 2022-05-26 17:00 | disposition home or self-care (01) | DRG 286 ==
LOC: ERS 16:17 → 2SW 18:07 → OBSVTOIN 05-24 15:55
PROVIDERS: ADMIT Internal Medicine; ATTEND Internal Medicine
PROC: 4A023N7 Measurement of Cardiac Sampling and Pressure, Left Heart, Percutaneous Approach (ICD-10-PCS; principal; 2022-05-24)
PROC: B2111ZZ Fluoroscopy of Multiple Coronary Arteries using Low Osmolar Contrast (ICD-10-PCS; 2022-05-24)
PROC: B2151ZZ Fluoroscopy of Left Heart using Low Osmolar Contrast (ICD-10-PCS; 2022-05-24)
DX: I11.0 Hypertensive heart disease with heart failure (principal); I50.33 Acute on chronic diastolic (congestive) heart failure; I47.20 Ventricular tachycardia, unspecified; J44.1 Chronic obstructive pulmonary disease with (acute) exacerbation; I48.19 Other persistent atrial fibrillation; Z20.822 Contact with and (suspected) exposure to COVID-19; F17.210 Nicotine dependence, cigarettes, uncomplicated; F41.9 Anxiety disorder, unspecified; F32.A Depression, unspecified; F90.9 Attention-deficit hyperactivity disorder, unspecified type; F43.10 Post-traumatic stress disorder, unspecified; Z79.899 Other long term (current) drug therapy; Z79.01 Long term (current) use of anticoagulants; Z95.0 Presence of cardiac pacemaker
CPT/HCPCS: 36415; 36416; 71045; 78452; 80048; 80053; 80061; 80076; 80162; 83036; 83735; 83880; 84443; 84484; 85025; 85347; 87449; 87899; 93005; 93017; 93306; 93458; 94640; 94760; 96365; 96374; 96375; 96376; 97139; 99152; A9500; C1769; G0378; J1644; J1815; J1940; J1956; J2001; J2060; J2250; J2720; J2785; J2930; J3010; J7050; J7512; J7620

== ENCOUNTER 2022-06-12 19:16 | Observation (INO) | payer MEDICAID, OTHER ==
[2022-06-12] MEDS ORDERED: Ipratropium/Albuterol 3 ML NEB ONE (19:49)
[2022-06-12] MEDS ORDERED: Albuterol 2.5 MG/0.5 ML NEB ONE (19:49)
[2022-06-12] MEDS ORDERED: Dexamethasone 10 MG/ML VIAL ONE (19:58)
[2022-06-12] MEDS ORDERED: Magnesium 2 GM/50 ML BAG (IN WATER) ONE (19:58)
[2022-06-12 20:12] LABS: #Eosinphils 0.3 thou/uL (0.0-0.7); #Lymphocytes 1.3 thou/uL (1.20-3.40); #Monocytes 0.8 thou/uL (0.11-0.59); %Basophils 0.4 % (0.0-1.0); %Lymphocytes 13.6 % (21.0-51.0); %Monocytes 8.6 % (0.0-10.0); %Neutrophils 74.4 % (42.0-75.0); Hemoglobin 14.5 g/dL (14.0-18.0); Mean Corpuscular HGB CONC 34.7 g/dL (32.0-36.0); Mean Corpuscular Volume 89.6 fl (78.0-98.0); Mean Platelet Volume 8.6 fL (7.4-10.4); Platelet Count 145 10x3/uL (130-400); RBC Distribution Width 13.3 % (11.5-14.5); Red Blood Cell (RBC) Count 4.66 mill/uL (4.70-6.10); White Blood Cell (WBC) Count 9.5 10x3/uL (4.8-10.8)
[2022-06-12 21:02] LABS: ALT (SGPT) 20 U/L (8-55); AST (SGOT) 14 U/L (5-34); Alkaline Phosphatase 64 U/L (40-110); Anion Gap 13 mmol/L (10-20); BUN (Urea Nitrogen) 18 mg/dL (8.4-25.7); Bilirubin, Total 0.6 mg/dL (0.2-1.2); Calc. Creatinine Clearance 0 mL/min (70-130); Calcium 9.6 mg/dL (7.8-10.44); Carbon Dioxide 31 mmol/L (23-31); Chloride 95 mmol/L (98-107); Estimated GFR 78; Globulin 2.9 g/dL (2.4-3.5); Glucose 277 mg/dL (80-115); Potassium 3.6 mmol/L (3.5-5.1); Protein, Total 6.9 g/dL (5.8-8.1); Sodium 135 mmol/L (136-145)
[2022-06-12] MEDS ORDERED: Morphine 4 MG/ML VIAL ONE (22:15)
[2022-06-13] MEDS ORDERED: Ipratropium/Albuterol 3 ML NEB NEB PRN (00:24)
[2022-06-13] MEDS ORDERED: HumaLOG 300 UNITS/3 ML VIAL SC PRN ×5 (00:31→07:23)
[2022-06-13] MEDS ORDERED: Acetaminophen 325 MG TAB PO PRN (00:31)
[2022-06-13] MEDS ORDERED: Ondansetron ODT 4 MG TAB PO PRN (00:31)
[2022-06-13] MEDS ORDERED: Dextrose 50% Abboject 50 ML SYRINGE SLOW IVP PRN ×2 (00:31→07:23)
[2022-06-13] MEDS ORDERED: Ondansetron PF 4 MG/2 ML Vial IVP PRN (00:31)
[2022-06-13] MEDS ORDERED: Dextrose 5% in Water 1,000 ML IV PRN ×2 (00:31→07:23)
[2022-06-13] MEDS ORDERED: Nicotine 14 MG PATCH ONE (00:42)
[2022-06-13] MEDS ORDERED: Morphine 4 MG/ML VIAL ONE (01:14)
[2022-06-13] MEDS ORDERED: Furosemide 40 MG/4 ML VIAL SLOW IVP SCH (01:45)
[2022-06-13] MEDS ORDERED: Apixaban 5 MG TAB PO SCH ×2 (01:45→09:00)
[2022-06-13] MEDS ORDERED: hydrOXYzine 25 MG TAB PO SCH (02:15)
[2022-06-13 02:42] VITALS: BMI 33.9
[2022-06-13] MEDS: HYDROcodone/Acetaminophen 5/325 mg Tablet PO PRN ×3 (02:56→15:48)
[2022-06-13] MEDS ORDERED: Azithromycin 500 MG in Sodium Chloride 0.9% 250 ML 250 ML IVPB SCH (03:00)
[2022-06-13 03:11] LABS: SARS-CoV-2 NAA Rapid Test Not Detected (NotDetected)
[2022-06-13 05:11] LABS: #Lymphocytes 0.4 thou/uL (1.20-3.40); #Monocytes 0.1 thou/uL (0.11-0.59); #Neutrophils 9.4 thou/uL (1.40-6.50); %Eosinophils 0.2 % (0.0-10.0); %Lymphocytes 3.7 % (21.0-51.0); %Neutrophils 95.1 % (42.0-75.0); Mean Corpuscular HGB CONC 33.4 g/dL (32.0-36.0); Mean Corpuscular Hemoglobin 30.3 pg (27.0-31.0); Mean Corpuscular Volume 90.5 fl (78.0-98.0); Mean Platelet Volume 8.2 fL (7.4-10.4); Platelet Count 165 10x3/uL (130-400); RBC Distribution Width 13.4 % (11.5-14.5); Red Blood Cell (RBC) Count 4.64 mill/uL (4.70-6.10); White Blood Cell (WBC) Count 9.9 10x3/uL (4.8-10.8)
[2022-06-13 05:31] LABS: Anion Gap 15 mmol/L (10-20); BUN (Urea Nitrogen) 18 mg/dL (8.4-25.7); Calc. Creatinine Clearance 102 mL/min (70-130); Calcium 9.1 mg/dL (7.8-10.44); Carbon Dioxide 25 mmol/L (23-31); Chloride 96 mmol/L (98-107); Estimated GFR 70; Potassium 4.1 mmol/L (3.5-5.1); Sodium 132 mmol/L (136-145)
[2022-06-13 05:34] LABS: Glucose 490 mg/dL (80-115)
[2022-06-13] MEDS: Ipratropium/Albuterol 3 ML NEB NEB SCH ×2 (06:38→13:35)
[2022-06-13] MEDS ORDERED: Insulin NPH Human Isophane 100 UNIT/ML (10 ML VIAL) SC SCH (08:00)
[2022-06-13] MEDS ORDERED: NPH, Human Insulin Isophane 300 UNIT/3 ML VIAL SC SCH (08:00)
[2022-06-13] MEDS ORDERED: predniSONE 20 MG TAB PO SCH (08:00)
[2022-06-13] MEDS ORDERED: Lisinopril 2.5 MG TAB PO SCH (09:00)
[2022-06-13] MEDS ORDERED: Torsemide 20 MG TAB PO SCH (09:00)
[2022-06-13] MEDS ORDERED: Nicotine 21 MG PATCH TD SCH (09:00)
[2022-06-13] MEDS ORDERED: Gabapentin 300 MG CAP PO SCH (09:00)
[2022-06-13] MEDS ORDERED: Aspirin Chewable 81 MG TAB PO SCH (09:00)
[2022-06-13] MEDS ORDERED: Metoprolol Tartrate 50 MG TAB PO SCH (09:00)
[2022-06-13] MEDS ORDERED: Digoxin 0.25 MG TAB PO SCH (09:00)
[2022-06-13 16:19] VITALS: BP 110/64; TEMP 98.1
[2022-06-13] MEDS ORDERED: Tamsulosin HCl 0.4 MG CAP PO SCH (21:00)
[2022-06-13] MEDS ORDERED: Atorvastatin Calcium 40 MG TAB PO SCH (21:00)
[2022-06-14] MEDS ORDERED: predniSONE 5 MG TAB PO SCH (08:00)
== END 2022-06-13 17:11 | disposition home or self-care (01) ==
LOC: ERS 19:16 → 2SW 06-13 01:26
PROVIDERS: ADMIT Family Medicine; ATTEND Family Medicine
DX: J44.1 Chronic obstructive pulmonary disease with (acute) exacerbation (principal); R60.0 Localized edema; I11.0 Hypertensive heart disease with heart failure; I50.20 Unspecified systolic (congestive) heart failure; I48.19 Other persistent atrial fibrillation; E11.40 Type 2 diabetes mellitus with diabetic neuropathy, unspecified; E78.5 Hyperlipidemia, unspecified; F17.210 Nicotine dependence, cigarettes, uncomplicated; I42.9 Cardiomyopathy, unspecified; E66.01 Morbid (severe) obesity due to excess calories; Z68.33 Body mass index [BMI] 33.0-33.9, adult; Z79.01 Long term (current) use of anticoagulants; Z79.82 Long term (current) use of aspirin; Z79.899 Other long term (current) drug therapy; Z95.810 Presence of automatic (implantable) cardiac defibrillator; Z20.822 Contact with and (suspected) exposure to COVID-19
CPT/HCPCS: 36415; 36416; 71045; 80048; 80053; 83880; 84484; 85025; 93005; 93923; 93970; 94640; 96365; 96375; 96376; G0378; J0456; J1100; J1815; J1940; J2270; J3475; J7050; J7512; J7611; J7620; U0002

== ENCOUNTER 2022-08-05 11:20 | Emergency (ER) | payer MEDICAID, OTHER ==
[2022-08-05 11:58] LABS: #Eosinphils 0.1 thou/uL (0.0-0.7); #Lymphocytes 0.8 thou/uL (1.20-3.40); #Monocytes 0.8 thou/uL (0.11-0.59); #Neutrophils 4.8 thou/uL (1.40-6.50); %Basophils 0.6 % (0.0-1.0); %Eosinophils 1.8 % (0.0-10.0); %Lymphocytes 11.8 % (21.0-51.0); %Monocytes 12.8 % (0.0-10.0); %Neutrophils 72.9 % (42.0-75.0); Hemoglobin 13.8 g/dL (14.0-18.0); Mean Corpuscular Hemoglobin 30.1 pg (27.0-31.0); Mean Corpuscular Volume 91.1 fl (78.0-98.0); Mean Platelet Volume 8.3 fL (7.4-10.4); Platelet Count 166 10x3/uL (130-400); RBC Distribution Width 13.2 % (11.5-14.5); Red Blood Cell (RBC) Count 4.61 mill/uL (4.70-6.10); White Blood Cell (WBC) Count 6.6 10x3/uL (4.8-10.8)
[2022-08-05] MEDS ORDERED: methylPREDNISolone Sod Succ/PF 125 MG/2 ML VIAL ONE (12:11)
[2022-08-05 12:13] LABS: INR-International Normal Ratio 1.3; PTT 31.8 sec (22.9-36.1); Prothrombin Time 16.3 sec (12.0-14.7)
[2022-08-05 12:29] LABS: ALT (SGPT) 15 U/L (8-55); AST (SGOT) 14 U/L (5-34); Albumin 4.1 g/dL (3.4-4.8); Alkaline Phosphatase 65 U/L (40-110); Anion Gap 14 mmol/L (10-20); BUN (Urea Nitrogen) 9 mg/dL (8.4-25.7); Bilirubin, Total 0.8 mg/dL (0.2-1.2); Calc. Creatinine Clearance 0 mL/min (70-130); Calcium 9.4 mg/dL (7.8-10.44); Carbon Dioxide 28 mmol/L (23-31); Chloride 103 mmol/L (98-107); Estimated GFR 97; Globulin 2.5 g/dL (2.4-3.5); Glucose 129 mg/dL (80-115); Protein, Total 6.6 g/dL (5.8-8.1); Sodium 141 mmol/L (136-145)
[2022-08-05] MEDS ORDERED: Ipratropium/Albuterol 3 ML NEB ONE (13:08)
[2022-08-05] MEDS ORDERED: Magnesium 2 GM/50 ML BAG (IN WATER) ONE (14:01)
[2022-08-05] MEDS ORDERED: Albuterol 2.5 MG/0.5 ML NEB ONE (14:01)
== END 2022-08-05 17:02 | disposition home or self-care (01) ==
LOC: ERS 11:20
DX: J44.1 Chronic obstructive pulmonary disease with (acute) exacerbation (principal); I11.0 Hypertensive heart disease with heart failure; I50.9 Heart failure, unspecified; F17.210 Nicotine dependence, cigarettes, uncomplicated
CPT/HCPCS: 36415; 71045; 80053; 83605; 83880; 84484; 85025; 85610; 85730; 87040; 94640; 94760; 96365; 96375; J2930; J3475; J7611; J7620

== ENCOUNTER 2024-11-20 12:56 | Emergency (ER) | payer MEDICAID, OTHER, SELFPAY ==
[~2024-11-20 12:56] MED LIST: Iopamidol-370 76% 500 ML MDV (1 ML CHARGE) ONE
[2024-11-20] MEDS ORDERED: Digoxin 0.5 MG/2 ML AMP ONE (13:55)
[2024-11-20] MEDS ORDERED: Magnesium 2 GM/50 ML BAG (IN WATER) ONE (13:56)
[2024-11-20] MEDS ORDERED: Metoprolol Tartrate 5 MG (5 mL) VIAL ONE (13:56)
[2024-11-20 14:46] LABS: #Basophils 0.05 10x3/uL (0.0-0.2); #Eosinophils 0.22 10x3/uL (0.0-0.7); #Monocytes 0.99 10x3/uL (0.11-0.59); #Neutrophils 6.14 10x3/uL (1.40-6.50); %Basophils 0.6 % (0.0-1.0); %Eosinophils 2.6 % (0.0-10.0); %Lymphocytes 11.4 % (21.0-51.0); %Monocytes 11.8 % (0.0-10.0); %Neutrophils 73.2 % (42.0-75.0); Hematocrit 40.3 % (42.0-52.0); Hemoglobin 13.6 g/dL (14.0-18.0); Mean Corpuscular Hemoglobin 29.8 pg (27.0-31.0); Mean Corpuscular Volume 88.4 fL (78.0-98.0); Platelet Count 170 10x3/uL (130-400); Red Blood Cell (RBC) Count 4.56 mill/uL (4.70-6.10); White Blood Cell (WBC) Count 8.39 10x3/uL (4.8-10.8)
[2024-11-20 15:08] LABS: Digoxin 0.52 ng/mL (0.8-2.0)
[2024-11-20 15:09] LABS: ALT (SGPT) 20 U/L (Less than 45); AST (SGOT) 16 U/L (11-34); Albumin 3.6 g/dL (3.1-4.5); Alkaline Phosphatase 75 U/L (40-110); Anion Gap 14 mmol/L (10-20); BUN (Urea Nitrogen) 14 mg/dL (8.4-25.7); Bilirubin, Total 1.0 mg/dL (0.3-1.2); Calc. Creatinine Clearance 0 mL/min (70-130); Calcium 8.9 mg/dL (7.8-10.44); Carbon Dioxide 23 mmol/L (23-31); Chloride 106 mmol/L (98-107); Globulin 2.7 g/dL (2.4-3.5); Glucose 84 mg/dL (80-115); Potassium 4.0 mmol/L (3.5-5.1); Sodium 139 mmol/L (136-145)
== END 2024-11-20 16:38 | disposition home or self-care (01) ==
LOC: ERS 12:56
DX: R07.9 Chest pain, unspecified (principal); J90 Pleural effusion, not elsewhere classified; E04.2 Nontoxic multinodular goiter; E07.9 Disorder of thyroid, unspecified; J44.9 Chronic obstructive pulmonary disease, unspecified; I48.91 Unspecified atrial fibrillation; I11.0 Hypertensive heart disease with heart failure; I50.9 Heart failure, unspecified; F17.210 Nicotine dependence, cigarettes, uncomplicated; Z79.51 Long term (current) use of inhaled steroids
CPT/HCPCS: 71045; 71275; 80053; 80162; 83880; 84484; 85025; 85379; 93005; 94760; 96365; 96375; J1160; J3475; Q9967

== ENCOUNTER 2024-11-26 13:30 | Inpatient (IN) | payer MEDICARE, OTHER ==
[2024-11-26 14:23] LABS: #Basophils 0.08 10x3/uL (0.0-0.2); #Eosinophils 0.32 10x3/uL (0.0-0.7); #Monocytes 0.65 10x3/uL (0.11-0.59); #Neutrophils 5.95 10x3/uL (1.40-6.50); %Basophils 1.0 % (0.0-1.0); %Eosinophils 4.0 % (0.0-10.0); %Lymphocytes 11.8 % (21.0-51.0); %Monocytes 8.1 % (0.0-10.0); %Neutrophils 74.6 % (42.0-75.0); Hematocrit 41.4 % (42.0-52.0); Hemoglobin 13.8 g/dL (14.0-18.0); Mean Corpuscular Hemoglobin 29.3 pg (27.0-31.0); Mean Corpuscular Volume 87.9 fL (78.0-98.0); Platelet Count 233 10x3/uL (130-400); Red Blood Cell (RBC) Count 4.71 mill/uL (4.70-6.10); White Blood Cell (WBC) Count 7.98 10x3/uL (4.8-10.8)
[2024-11-26 14:36] LABS: INR-International Normal Ratio 1.2; PTT 34.0 sec (22.9-36.1); Prothrombin Time 15.8 sec (12.0-14.7)
[2024-11-26 14:47] LABS: ALT (SGPT) 24 U/L (Less than 45); AST (SGOT) 20 U/L (11-34); Albumin 3.6 g/dL (3.1-4.5); Alkaline Phosphatase 74 U/L (40-110); Anion Gap 12 mmol/L (10-20); BUN (Urea Nitrogen) 18 mg/dL (8.4-25.7); Bilirubin, Total 0.5 mg/dL (0.3-1.2); Calc. Creatinine Clearance 0 mL/min (70-130); Calcium 8.7 mg/dL (7.8-10.44); Carbon Dioxide 24 mmol/L (23-31); Chloride 107 mmol/L (98-107); Globulin 2.7 g/dL (2.4-3.5); Glucose 93 mg/dL (80-115); Potassium 4.1 mmol/L (3.5-5.1); Sodium 139 mmol/L (136-145)
[2024-11-26] MEDS ORDERED: Ondansetron PF 4 MG/2 ML Vial IVP PRN (15:46)
[2024-11-26 18:11] LABS: Digoxin 1.55 ng/mL (0.8-2.0)
[2024-11-26] MEDS ORDERED: Apixaban 5 MG TAB PO SCH (21:00)
[2024-11-26] MEDS: Pregabalin 50 MG CAP PO PRN (21:26)
[2024-11-26 22:06] VITALS: BMI 26.6
[2024-11-27 04:24] LABS: #Basophils 0.06 10x3/uL (0.0-0.2); #Eosinophils 0.45 10x3/uL (0.0-0.7); #Monocytes 0.83 10x3/uL (0.11-0.59); #Neutrophils 5.12 10x3/uL (1.40-6.50); %Basophils 0.8 % (0.0-1.0); %Eosinophils 5.8 % (0.0-10.0); %Lymphocytes 16.4 % (21.0-51.0); %Monocytes 10.7 % (0.0-10.0); %Neutrophils 65.7 % (42.0-75.0); Hematocrit 43.3 % (42.0-52.0); Hemoglobin 14.0 g/dL (14.0-18.0); Mean Corpuscular Hemoglobin 28.5 pg (27.0-31.0); Mean Corpuscular Volume 88.2 fL (78.0-98.0); Platelet Count 249 10x3/uL (130-400); Red Blood Cell (RBC) Count 4.91 mill/uL (4.70-6.10); White Blood Cell (WBC) Count 7.79 10x3/uL (4.8-10.8)
[2024-11-27 04:43] LABS: Anion Gap 13 mmol/L (10-20); BUN (Urea Nitrogen) 17 mg/dL (8.4-25.7); Calc. Creatinine Clearance 99 mL/min (70-130); Calcium 8.6 mg/dL (7.8-10.44); Carbon Dioxide 25 mmol/L (23-31); Cardiac Risk 2.7 (Less than 4.5); Chloride 107 mmol/L (98-107); Cholesterol 99 mg/dl (< 200 Desired); Glucose 149 mg/dL (80-115); HDL Cholesterol 37 mg/dL (>60 Neg Risk); LDL Cholesterol, Calculated 53 mg/dL; Potassium 4.1 mmol/L (3.5-5.1); Sodium 141 mmol/L (136-145); Triglycerides 43 mg/dL (Less than 150)
[2024-11-27] MEDS: Enoxaparin 40 MG (0.4 mL) SYRINGE SC SCH (08:34)
[2024-11-27] MEDS: Digoxin 0.25 MG TAB PO SCH (08:34)
[2024-11-27] MEDS: Aspirin Chewable 81 MG TAB PO SCH (08:34)
[2024-11-27] MEDS ORDERED: Lisinopril 2.5 MG TAB PO SCH (09:00)
[2024-11-27] MEDS ORDERED: Enoxaparin 40 MG (0.4 mL) SYRINGE SC SCH (09:00)
[2024-11-27] MEDS ORDERED: Metoprolol Succinate XL 25 MG ER.TAB PO SCH (09:00)
[2024-11-27] MEDS ORDERED: Torsemide 20 MG TAB PO PRN (15:47)
[2024-11-27] MEDS: Acetaminophen 325 MG TAB PO PRN (18:16)
[2024-11-28 03:50] LABS: #Basophils 0.11 10x3/uL (0.0-0.2); #Eosinophils 0.45 10x3/uL (0.0-0.7); #Monocytes 1.04 10x3/uL (0.11-0.59); #Neutrophils 3.81 10x3/uL (1.40-6.50); %Basophils 1.6 % (0.0-1.0); %Eosinophils 6.6 % (0.0-10.0); %Lymphocytes 20.2 % (21.0-51.0); %Monocytes 15.2 % (0.0-10.0); %Neutrophils 56.0 % (42.0-75.0); Hematocrit 41.2 % (42.0-52.0); Hemoglobin 13.2 g/dL (14.0-18.0); Mean Corpuscular Hemoglobin 28.9 pg (27.0-31.0); Mean Corpuscular Volume 90.4 fL (78.0-98.0); Platelet Count 213 10x3/uL (130-400); Red Blood Cell (RBC) Count 4.56 mill/uL (4.70-6.10); White Blood Cell (WBC) Count 6.82 10x3/uL (4.8-10.8)
[2024-11-28 04:08] LABS: Anion Gap 11 mmol/L (10-20); BUN (Urea Nitrogen) 17 mg/dL (8.4-25.7); Calc. Creatinine Clearance 90 mL/min (70-130); Calcium 8.4 mg/dL (7.8-10.44); Carbon Dioxide 25 mmol/L (23-31); Chloride 109 mmol/L (98-107); Glucose 141 mg/dL (80-115); Potassium 3.9 mmol/L (3.5-5.1); Sodium 141 mmol/L (136-145)
[2024-11-28] MEDS: Albuterol 200 PUFF (6.7GM INHALER) INH PRN (05:07)
[2024-11-28 07:52] VITALS: TEMP 98.3
[2024-11-28] MEDS: Metoprolol Succinate XL 25 MG ER.TAB PO SCH (08:43)
[2024-11-28 09:11] VITALS: BP 125/72
== END 2024-11-28 12:27 | disposition home or self-care (01) | DRG 65 ==
LOC: ERS 13:30 → SUATTDRO 13:30 → 2SE 15:46 → OBSVTOIN 11-27 15:48
PROVIDERS: ADMIT Family Medicine; ATTEND Internal Medicine
DX: I63.9 Cerebral infarction, unspecified (principal); G81.91 Hemiplegia, unspecified affecting right dominant side; I50.42 Chronic combined systolic (congestive) and diastolic (congestive) heart failure; F41.9 Anxiety disorder, unspecified; F32.A Depression, unspecified; F90.9 Attention-deficit hyperactivity disorder, unspecified type; F43.10 Post-traumatic stress disorder, unspecified; J44.9 Chronic obstructive pulmonary disease, unspecified; I48.91 Unspecified atrial fibrillation; I11.0 Hypertensive heart disease with heart failure; Z87.820 Personal history of traumatic brain injury; Z98.890 Other specified postprocedural states; N40.0 Benign prostatic hyperplasia without lower urinary tract symptoms; Z72.0 Tobacco use; R29.700 NIHSS score 0; Z79.899 Other long term (current) drug therapy
CPT/HCPCS: 36415; 70450; 70496; 70498; 70551; 71045; 80048; 80053; 80061; 80162; 84443; 84484; 85025; 85610; 85730; 93005; 93306; 94760; 95700; 95711; 95957; 96372; G0378; J1650; Q9967